=== PATIENT | female | born 1955 | race Caucasian/White ===

== ENCOUNTER 2025-01-14 10:06 | Outpatient (REF) | payer OTHER, SELFPAY ==
--- OUTSIDE RECORDS SUMMARY | 2025-01-15 10:09 | XMS_ITS | Clinical Summary ---
Author Organization [facility] Address [address] [facility] [place], [place] [address] Phone Care Team Providers Care Osteopathic Physician Name Role Phone Veronique Hamilton MD Primary Care Pr ovider Allergies No known active allergies Medications Bacillus coagulans-inuli n 1 billion-250 cell-mg capsule Take 1 Capsule by mouth daily. 07/24/2023 Active OMEGA-3 FATTY ACIDS-FISH OIL ORAL Take by mouth. Active calcium carbonate-vit D3-min 600 mg-10 mcg (400 unit) tablet Take 1 Tablet by mouth 2 times daily. 07/24/2023 Active cholecalciferol (VITAMIN D-3) 50 mcg (2,000 unit) capsule Take 1 Capsule by mouth daily. 04/23/2023 Active fluticasone propionate (FLONASE) 50 mcg/actuation nasal spray 2 Sprays by Each Nare route 2 times daily. 07/09/2023 Active ibuprofen (ADVIL,MOTRIN) 800 mg tablet TAKE 1 TABLET BY MOUTH EVERY 8 HOURS NEEDED FOR PAIN 10/13/2023 Active magnesium aspart,citrate, oxide (Triple Magnesium Complex) 400 mg magnesium capsule Take 1 Tablet by mouth daily. Active triamcinolone (KENALOG) 0.025 % cream APPLY THIN LAYER TO EAR RASH TWICE DAILY FOR 5-7 DAYS 08/27/2023 Active Active Problems Problem Noted Date Diagnosed Date Anxiety and depression 09/23/2024 Hyperlipidemia 09/23/2024 Overview (09/23/2024): Last Assessment & Plan: I reviewed that even minor coronary disease technically does put her at risk for heart attack and stroke. We found through many studies that it is the small, streaky plaques that cause acute plaque rupture and heart attack. That said, her overall burden on CT angiography is low. However, I think she would still benefit from treatment with statin long-term. She would prefer not to start statins which I think is reasonable. For the same reason, she will remain on baby aspirin. The risk- benefit for this treatment is less robust in the setting of primary prevention. She would prefer to remain on it which I think is also reasonable. Regardless, I recommended a Mediterranean diet rich in healthy fats, fruits and vegetables, whole grains. I also strongly recommended that she stop smoking of all kinds including marijuana. She seems very precontemplative. Atypical chest pain 02/04/2024 Overview (09/23/2024): Last Assessment & Plan: Noncardiac, reassuring coronary CT angiography. 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/04/2024 Overview (09/23/2024): - Positive stress test in [facility] 2022 - CT angiography and follow-up on 01/25/2024 showed normal left main, mild calcified plaque in the proximal to mid LAD at less than 25%, no plaque seen into subsequent diagonal branches of the LAD or the remaining LAD, a few small calcified plaques without hemodynamically significant stenosis seen in the circumflex territory, normal RCA without significant plaquing Last Assessment & Plan: I did review the importance of potential primary prevention strategies even in light of subclinical CAD that is mild and nonobstructive-including potential and use to prevent progression of coronary disease, continuation of baby aspirin, and observing a healthy Mediterranean diet and quitting smoking of all kinds. Please see discussion above under hyperlipidemia section. Hypertension 02/04/2024 Overview (09/23/2024): Last Assessment & Plan: Patient has had multiple visits during which her blood pressure is technically elevated. However, I suspect it is very difficult to even discuss hypertension management with her as she is very against taking medications. If the patient agrees, could consider antihypertensive treatment. Recurrent bacterial cystitis 08/26/2023 Overview (09/23/2024): 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, right Immunizations Name Administration Dates Next Due Aiming SARS-CoV-2 COVID-19, mRNA, LNP-S, preservative free 11/09/2021,02/14/2021,01/23/2021 Pneumococcal conjugate 20 va lent (Prevnar 20, PCV 20) 2mo and older 07/09/2023 Td Tetanus diptheria (Tdvax) 7yo and older 05/02 Tdap Tetanus diptheria acell ular pertussis (Boostrix; Adacel) 7yo and older 08/21/2016 Surgical History Surgery Date Site/Laterality Comments SECTION PROCEDURE: HISTORICAL DELIVERY VAGINOSCOPY PROCEDURE: VA COLPOSCOPY CERVIX VAG LOOP ELTRD BX CERVIX Medical History Medical History Date Comments Lyme disease DX:Lyme disease Anxiety DX:Anxiety Onychomycosis 02/11/2017 DX:Onychomycosis Fibromyalgia 02/11/2017 DX:Fibromyalgia Family History Medical History Relation Name Comments Arthritis Maternal Grandmother Stroke Maternal Grandmother Other: TIA Mother Other: alive and well Mother Breast cancer Mother's side cousin on moms s breana 3rd Other: alive and well Sister 3 sist ers and brother Colon cancer Neg Hx Lung cancer Neg Hx Relation Name Status Comments Father Maternal Grandfather Maternal Grandmother Mother Alive Mother's side cousin on moms side 3rd Alive Paternal Grandfather Paternal Grandmother Sister Social History Tobacco Use Types Packs/Day Years Used Date Smoking Tobacco: Former Cigarettes Q uit: 10/06/1989 Smokeless Tobacco: Never Alcohol Use Standard Drinks/Week Comments No 0 (1 standard drink = 0.6 oz pur e alcohol) Comments Unknown Sex and Gender Information Value Date Recorded Sex Assigned at Not on file Legal Sex Female 1:55 PM EST Gender Identity Not on file Sexual Orientation Not on file Obstetrics History Last Filed Vital Signs Vital Sign Reading Time Taken Comments Blood Pressure 142/76 02/04/2024 10:42 AM EDT Si tting L Arm Pulse 62 02/04/2024 10:42 AM EDT Temperature - - Respiratory Rate - - Oxygen Saturation - - Inhaled Oxygen Concentration - - Weight 77.6 kg (171 lb) 02/04/2024 10:42 AM EDT Height 154.9 cm (5' 1 ) 02/04/2024 10:42 AM EDT Body Mass Index 32.31 02/04/2024 10:42 AM EDT Plan of Treatment Health Maintenance Due Date Last Done Comments Breast Cancer Screening 1955 Zoster Vaccines (1 of 2) 2006 Colorectal Cancer Screening: Colonoscopy 09/14/2022 Depression Screening 09/14/2022 Falls Risk Assessment 09/14/2022 Medicare Annual Wellness Visit 09/14/2022 Osteoporosis Screening (Bone Density Screening) 09/14/2022 Social Influencers of Health Screening 09/14/2022 Hypertension/CHF/CAD Annual BMP Blood Test 04/30/2024 04/16/2023 COVID-19 Vaccine (4 - 2023-2 5 season) 2024 11/09/2021, 02/14/2021, 01/23/2021 Influenza Vaccine (Season Ended) 2025 DTaP,Tdap,and Td Vaccines (4 - Td or Tdap) 01/26/2027 01/26/2017, 08/21/2016, 05/02/2013 Cholesterol Screening (Lipid Panel) 04/16/2028 04/16/2023 RSV Immunization Adult Patients (1 - 1-dose 75+ series) 2031 Hepatitis C Screening Completed 08/04/2018 Pneumococcal Vaccine: 50+ Years Completed 07/09/2023 HIB Vaccines Aged Out No longer eligi ble based on patient's age to complete this topic HPV Vaccines Aged Out No longer eligi ble based on patient's age to complete this topic Hepatitis A Vaccines Aged Out No long er eligible based on patient's age to complete this topic Hepatitis B Vaccines Aged Out No long er eligible based on patient's age to complete this topic IPV Vaccines Aged Out No longer eligi ble based on patient's age to complete this topic MMR Vaccines Aged Out No longer eligi ble based on patient's age to complete this topic Meningococcal ACWY Vaccine Aged Out N o longer eligible based on patient's age to complete this topic Meningococcal B Vaccine Aged Out No l onger eligible based on patient's age to complete this topic RSV Immunization Patients Under 20 months Aged Out No longer eligible b ased on patient's age to complete this topic Varicella Vaccines Aged Out No longer eligible based on patient's age to complete this topic Procedures Procedure Name Priority Date/Time Associated Diagnosis Comments ANNUAL BMP BLOOD TEST Routine 04/16/2023 LIPID PANEL Routine 04/16/2023 HEPATITIS C SCREENING Routine 08/04/2018 from Last 3 Months or Most Recently Relevant to Health Maintenance Results * Annual BMP Blood Test (04/16/2023) Pathologist [facility] Annual BMP Blood Test Abstracted Historical Provider HEALTH MAINTENANCE Final Result * (ABNORMAL) Lipid panel (04/16/2023) [facility] LDL/HDL Ratio 4 0 - 4 Triglycerides 87 0 - 150 mg/dL Cholesterol 183 0 - 200 mg/dL HDL 49 >=40 mg/dL LDL Cholesterol 117(A) 0 - 100 mg/dL Blood Venous blood specimen / Unknown Historical Provider LAB BLOOD ORDERABLES Olga l Result * Hepatitis C Screening (08/04/2018) Pathologist [facility] Hepatitis C Screening Abstracted Historical Provider HEALTH MAINTENANCE Final Result from Last 3 Months or Most Recently Relevant to Health Maintenance Insurance [facility] [employer] Member Subscriber Plan / Payer (Ef fective 2024-Present) Name:Mallory Harris Relation to Subscriber:Self Name:Mallory Harris Payer ID:[id number] Group ID:Not on file Type:Not on file Address: [place] [address] [place] [id number] Care Teams Osteopathic Physician Relationship Specialty Start Date End Date Veronique Hamilton MD PCP - General 10/21/22
--- OUTSIDE RECORDS SUMMARY | 2025-01-15 10:09 | XMS_ITS | Clinical Summary ---
Author Organization [facility] Address [address] [place] [address] Care Team Providers Care Surface Room Shop Optician Name Role Phone Veronique Hamilton MD Primary Care Pr ovider Allergies Active Allergy Reactions Criticality Noted Date Comments Tigecycline 04/15/2023 Medications ibuprofen (MOTRIN) 800 MG tablet Take 800 mg by mouth. 09/22/2020 Active HYDROXYPROPYL CELLULOSE OPHT Apply 1 drop to eye. 08/24/2020 Active acetaminophen (TYLENOL) 650 MG CR tablet Take 650 mg by mouth. 07/14/2019 Active cyclopentolate (CYCLODRYL) 1 % ophthalmic solution INSTILL 1 DROP INTO RIGHT EYE TWICE A DAY 07/14/2020 Active propylene glycol-glycerin 1-0.3 % drop Apply 2 drops to eye. 08/22/2020 Active Artificial Tears,glycerin-p eg, 1-0.3 % drop 09/21/2020 Ac tive ibuprofen (MOTRIN) 800 MG tablet 09/22/2020 Active lidocaine (LIDODERM) 5 % Place 1 patch on the skin. 03/17/2020 Active lidocaine (LIDODERM) 5 % 09/21/2020 Acti ve peg 400-hypromellose -glycerin 1-0.2-0.2 % drop Apply 2 drops to eye. 09/13/2019 Active Artificial Tears, polyvin alc, 1.4 % ophthalmic solution APPLY 2 DROPS TO THE EYE(S) 4 TIMES DAILY. 07/10/2020 Active cholecalciferol, vitamin D3, 50 mcg (2,000 unit) Take 1 capsule by mouth 04/23/2023 Active cholecalciferol, vitamin D3, 50 mcg (2,000 unit) TAKE 1 CAPSULE BY MOUTH EVERY DAY 04/23/2023 Active lactobacillus combination no.4 (Probiotic) 3 billion cell cap Take 1 capsule by mouth 02/25/2023 Active loratadine (CLARITIN) 10 mg tablet TAKE 1 TABLET BY MOUTH EVERY DAY 06/05/2023 Active magnesium oxide,aspartate, citr (Triple Magnesium Complex) 400 mg magnesium cap Take 1 tablet by mouth Active triamcinolone (KENALOG) 0.025 % cream Apply thin layer to ear rash twice daily for 5-7 days 06/05/2023 Active triamcinolone (KENALOG) 0.025 % cream APPLY THIN LAYER TO EAR RASH TWICE DAILY FOR 5-7 DAYS 06/05/2023 Active Social History Tobacco Use Types Packs/Day Years Used Date Smoking Tobacco: Never Smokeless Tobacco: Never PHQ-2 Answer Date Recorded PHQ-2 Score Patient declined 07/07/2023 Comments Unknown Sex and Gender Information Value Date Recorded Sex Assigned at Not on file Legal Sex Female 10:59 AM EST Gender Identity Not on file Sexual Orientation Not on file Last Filed Vital Signs Vital Sign Reading Time Taken Comments Blood Pressure 148/74 07/07/2023 11:29 AM EDT Pulse 77 07/07/2023 11:00 AM EDT Temperature 36.6 ??C (97.8 ??F) 07/07/2023 11:00 AM E DT Respiratory Rate 18 07/07/2023 11:00 AM EDT Oxygen Saturation 98% 07/07/2023 11:00 AM EDT Inhaled Oxygen Concentration - - Weight 78.9 kg (174 lb) 10/06/2020 10:32 AM EST Height - - Body Mass Index - - Plan of Treatment Health Maintenance Due Date Last Done Comments Colorectal Cancer: COLONOSCO PY Screening every 10 yrs (or Modifier) 1955 Depression: Screening Annual ly using PHQ-2/9 in Adults 18 yrs or above (or HM Modifier)([facility]) 1974 Hepatitis C Virus Infection in Adolescents and Adults: Screening (or Modifier) ([facility]) 1974 [facility] Screening Reminder: Candis smith for all adults ([facility]) 1974 Tobacco Smoking Cessation: i n Adults excluding Women: Behavioral and Pharmacotherapy Interventions ([facility]) 1974 Pneumococcal Vaccination Scr eening: Patients 50+ yrs of age ([facility]) (1 of 2 - PCV) 1975 Colorectal Cancer Screening 45 -75 Yrs (or HM Modifier) 2001 Colorectal Cancer: FLEXIBLE SIGMOIDOSCOPY Screening every 5 yrs 2001 Colorectal Cancer: Fecal Immunochemical Test (FIT) Annually [facility] 2001 Colorectal Cancer: High-sens itivity gFOBT Screening Annually [facility] 2001 Colorectal Cancer: Stool Col oguard Screening every 3 yrs 2001 Colorectal Cancer:CT Colonog homar Screening every 5 yrs 2001 Breast Cancer: Screening Candis ually age 50-74 yrs (or HM Modifier)([facility]) 2006 Zoster/Shingles Vaccine Seri es Screening: Adults aged 18+ yrs (or HM Modifiers)([facility]) (1 of 2) 2006 Osteoporosis Screening to Pr event Fractures: Women aged 65 years+ ([facility]) 2021 Flu Vaccination: Ages 65+: Y early High Dose Recommended (or Modifier)([facility]) 05/06/2024 COVID-19 Vaccine Screening: Initial Series and Booster Status ([facility]) ( season) 2024 11/09/2021, 02/14/2021, 01/23/2021 DTaP/Tdap/Td Vaccines ([facility]) (2 - Td or Tdap) 08/21/2026 08/21/2016 Lipid Screening: Every 5 yrs for Women aged 45+ (or HM Modifier) ([facility]) 04/16/2028 04/16/2023 RSV Vaccines (1 - 1-dose 75+ series) 2031 [employer] [id number] [facility] Care Teams Surface Room Shop Optician Relationship Specialty Start Date End Date Veronique Hamilton MD [address] [place] [address] PCP - General Family Medicine 07/07/23
== END 2025-01-14 10:07 | disposition home or self-care (01) ==
LOC: HO.HOSX 10:06
PROVIDERS: Visit Provider Physician Assistant
DX: Z13.89 Encounter for screening for other disorder (principal)

== ENCOUNTER 2025-03-15 14:52 | Outpatient (AMB) | payer OTHER, SELFPAY ==
--- NOTE | 2025-03-15 15:16 | MHC.OFFVIS ---
Vital Signs 03/15/25 15:24 Height 5 ft 1 in Weight 179 lb BMI 33.8 Handedness Right Intake Visit Reasons: New Pt - Bilat knee pain LT worse Intake Note: Mallory is a 69 year old female who presents today as a new patient for a evaluation of her bilateral knee pain. Hx of 07/13/24. [facility] [place] for [facility] therapy on 11/25/24. Patient reports ongoing pain since July. She mentions that her left knee is worse than the right. She states that her pain start all over her left knee and it moves to the back of the knee. Patient notices that her pain is worse when . She finds relief with Motrin and physical therapy for her left knee. Allergies tigecycline Allergy (Verified 03/15/25 15:23) Nausea HPI HPI New Pt - Bilat knee pain LT worse: Details: Ms. Harris is a 69-year-old female who presents to the office today for evaluation of bilateral knee pain. She reports the left knee is worse than the right. On 07/13/24 the patient reports that she was walking into [place] when she tripped over the rug. She caught herself with the left leg and did not fall to the ground. Ever since then she has had excruciating left knee pain. She has been attending physical therapy with no relief. [facility] Surgical History (Updated 07/30/22 @ 16:22 by MIKE Frank) Hx of section H/O LEEP Family History (Updated 07/31/22 @ 09:04 by MIKE Frank) Maternal Grandmother Arthritis Stroke Mother TIA (transient ischemic attack) Other Family history of breast cancer Social History (Updated 03/15/25 @ 15:24 by Gilbert Pittman) Alcohol intake: never Patient Tobacco Use Status: Never used Tobacco Current occupational status: retired Current occupation: right hand dominant Review of Systems Const All systems reviewed & are unremarkable except as noted in HPI and below Physical Exam Vital Signs: BMI result Body Mass Index 33.8 Const General: cooperative, healthy appearing and no acute distress Resp Effort & Inspection: normal respiratory effort and able to speak in complete sentences Extrem Other: Right/Left knee: No ecchymosis erythema or joint effusion bilaterally. Tenderness to palpation along the medial and lateral joint lines. Full knee extension and flexion. Crepitus felt with range of motion. NVI. Assessment & Plan Assessment & Plan (1) Osteoarthritis of knees, bilateral: Code(s): M17.0 - Bilateral primary osteoarthritis of knee Category: Medical Plan Right/Left knee: Normal to inspection. No ecchymosis, erythema, or joint effusion. No tenderness to palpation along the medial or lateral joint lines. Full knee extension and flexion. Negative Matteo's. Negative anterior drawer. NVI. While in the office today, I reviewed the x-ray imaging with the patient and explained what osteoarthritis is and showed her on the x-rays that we obtained in the office today. I discussed multiple treatment options with this patient including cortisone injection, gel injection, referral to pain management for consideration of geniculate nerve blocks and lastly the possibility of total knee arthroplasty. The patient refused all treatment plans at this time. She stated that she was returning back to physical therapy and would like to give that some time. She was inquiring about knee sleeves however our office does not carry these. Upon leaving the office the patient told our medical record transcriber that she would like to follow up with Dr. Calderón for further discussion of total knee arthroplasty. Therefore, she will follow up with Dr. Calderón for further consideration, sooner if needed. X-rays of bilateral knees were obtained in the office today and reviewed by me, Ct Augustine PA-C, and are significant for severe osteoarthritis in bilateral knees. Orders: Orders XR Knee Marquise 3V 03/15/25 M25.561 - Pain in right knee, M25.562 - Pain in left knee Coding Level of Care Code New Pt Level 4 (98771) Diagnoses Osteoarthritis of knees, bilateral M17.0
[2025-03-15 15:24] VITALS: BMI 33.8
--- OUTSIDE RECORDS SUMMARY | 2025-03-15 17:57 | XMS_ITS | Clinical Summary ---
Author Organization [facility] Address [address] [place] [address] Care Team Providers Care Machine Packer Name Role Phone Veronique Hamilton MD Primary [...] Adults 18 yrs or above (or HM Modifier)([facility]) 1974 Hepatitis C Virus Infection in Adolescents and Adults: Screening (or Modifier) ([facility]) 1974 [facility] Screening Reminder: Candis smith for all adults ([facility]) 1974 Tobacco Smoking Cessation: i n Adults excluding Women: Behavioral and Pharmacotherapy Interventions ([facility]) 1974 Pneumococcal Vaccination Scr eening: Patients 50+ yrs of age ([facility]) (1 of 2 - PCV) 1975 Colorectal Cancer Screening 45 -75 Yrs (or HM Modifier) 2001 Colorectal Cancer: FLEXIBLE SIGMOIDOSCOPY Screening every 5 yrs 2001 Colorectal Cancer: Fecal Immunochemical Test (FIT) Annually [facility] 2001 Colorectal Cancer: High-sens itivity gFOBT Screening Annually [facility] 2001 Colorectal Cancer: Stool Col oguard Screening every 3 yrs 2001 Colorectal Cancer:CT Colonog homar Screening every 5 yrs 2001 Breast Cancer: Screening Candis ually age 50-74 yrs (or HM Modifier)([facility]) 2006 Zoster/Shingles Vaccine Seri es Screening: Adults aged 18+ yrs (or HM Modifiers)([facility]) (1 of 2) 2006 Osteoporosis Screening to Pr event Fractures: Women aged 65 years+ ([facility]) 2021 COVID-19 Vaccine Screening: Initial Series and Booster Status ([facility]) ( - 2023- season) 2024 11/09/2021, 02/14/2021, 01/23/2021 Flu Vaccination: Ages 65+: Y early High Dose Recommended (or Modifier)([facility]) 05/06/2025 DTaP/Tdap/Td Vaccines ([facility]) (2 - Td or Tdap) 08/21/2026 08/21/2016 RSV Vaccines (1 - 1-dose 75+ series) 2031 [employer] Devices Not on file Insurance [facility] Care Teams Machine Packer Relationship Specialty Start Date End Date Veronique Hamilton MD [address] [place] [id number] PCP - General Family Medicine 07/07/23
== END 2025-03-15 15:51 | disposition home or self-care (01) ==
LOC: HO.HOS 14:52
PROVIDERS: PCP Internal Medicine; Visit Provider Physician Assistant
DX: M17.0 Bilateral primary osteoarthritis of knee (principal)
CPT/HCPCS: 99204

== ENCOUNTER 2025-03-15 15:00 | Outpatient (REF) | payer OTHER, SELFPAY ==
--- NOTE | ~2025-03-15 | XR_ITS ---
Exam: Three-view bilateral knees TECHNIQUE:: Standing AP, lateral and sunrise view bilateral knees INDICATION: Knee pain Prior: None currently available Findings: Right knee: There is moderate severe narrowing of the lateral joint space and minimal narrowing of the medial joint space. There is mild narrowing of the lateral patellofemoral joint space. There are tricompartmental marginal osteophytes. There are also osteophytes projecting into the intercondylar notch and from the tibial spines. There is subchondral sclerosis in the medial tibial plateau. There is stippled calcification medial to the medial joint line. There is a joint effusion. Left knee: There is severe narrowing of the lateral joint space and minimal narrowing of the medial joint space. There is minimal narrowing of the lateral patellofemoral joint space. There are tricompartmental marginal osteophytes most pronounced along the medial joint line and patellofemoral joint. There are also osteophytes involving the intercondylar spines and minimal extending into the intercondylar notch. Small joint effusion is evident. XR/XR Knee Marquise 3V IMPRESSION: Right knee: Moderate to severe osteoarthritis with a small reactive joint effusion. Left knee: Moderate to severe osteoarthritis with a small reactive joint effusion. Electronically signed by: Calvin Olivares MD 03/16/2025 01:24 PM EDT
== END 2025-03-15 15:01 | disposition home or self-care (01) ==
LOC: HO.HOSX 15:00
PROVIDERS: Visit Provider Physician Assistant
DX: M17.0 Bilateral primary osteoarthritis of knee (principal)
CPT/HCPCS: 73562

== ENCOUNTER → 2025-03-15 15:01 | Outpatient (BNV) | payer OTHER, SELFPAY | PROVIDERS: Visit Provider Radiology Diagnostic Radiology | DX: M17.0 Bilateral primary osteoarthritis of knee (principal) | CPT/HCPCS: 73562 ==

== ENCOUNTER 2025-05-16 13:40 | Outpatient (AMB) | payer OTHER, SELFPAY ==
--- NOTE | 2025-05-16 13:42 | MHC.OFFVIS ---
Vital Signs 05/16/25 13:46 Height 5 ft 1.5 in Weight 165 lb BMI 30.7 Handedness Right Intake Visit Reasons: OV - Discuss Left TKA Intake Note: Mallory is a 69 year old female who presents today for a follow up of her Left Knee OA. Patient was last seen with Ct who discussed multiple treatment options such as cortisone, gel, pain management referral for geniculate trial and possible TKA. Patient declined conservative measures and presents today to discuss Left TKA. Has tried injections over 20 years ago. She almost fell in 07/13/24 and twisted her left leg/knee and was treated with PT however she thinks she has a fusion in the left knee. She says she was going to start PT again however her pain has increased and now she has concern for fluid build up in the knee. Allergies tigecycline Allergy (Verified 05/16/25 13:47) Nausea HPI HPI OV - Discuss Left TKA: Details: Mallory is a 69 year old female who presents today for a follow up of her Left Knee OA. Patient was last seen with Ct who discussed multiple treatment options such as cortisone, gel, pain management referral for geniculate trial and possible TKA. Patient declined conservative measures and presents today to discuss Left TKA. Has tried injections over 20 years ago. She almost fell in 07/13/24 and twisted her left leg/knee and was treated with PT however she thinks she has a fusion in the left knee. She says she was going to start PT again however her pain has increased and now she has concern for fluid build up in the knee. She has not had injection in over 10 years because she is scared of injections. She has been doing physical therapy. She has not seen pain management. She does describe difficulty with her mood with psychiatric comorbidities these and a history of suicidal ideation. She denies that she has suicidal ideation now. She is opposed to surgery as well but she does not know what to do. She feels like the pain is preventing her from living her life comfortably. [facility] Surgical History (Updated 07/30/22 @ 16:22 by MIKE Frank) Hx of section H/O LEEP Family History (Updated 07/31/22 @ 09:04 by MIKE Frank) Maternal Grandmother Arthritis Stroke Mother TIA (transient ischemic attack) Other Family history of breast cancer Social History (Updated 03/15/25 @ 15:24 by Gilbert Pittman) Alcohol intake: never Patient Tobacco Use Status: Never used Tobacco Current occupational status: retired Current occupation: right hand dominant Physical Exam Vital Signs: BMI result Body Mass Index 30.7 Extrem Other: Tenderness to palpation lateral and medial compartment of the left knee. Mild effusion. 5-125 degrees of motion. 1+ valgus instability. Results Reviewed Results Reviewed: I personally reviewed relevant radiographs. Severe bilateral knee OA left greater than right Assessment & Plan Assessment & Plan (1) Osteoarthritis of knees, bilateral: Code(s): M17.0 - Bilateral primary osteoarthritis of knee Category: Medical Plan: This is a 69-year-old woman with severe bilateral knee OA. She takes NSAIDs and has had injections in the remote past. She does not want injections. She states that injections have caused her harm in the past. She is doing physical therapy and we will continue to do this on her own. She is not interested in surgery at this time. In addition I feel like she has described a psychiatric situation that does not sound too conducive to surgery. She states she is dealing with lots of anxiety and needs to resolve this prior to any thought of surgery. We did discuss a referral to pain management to help her manage her pain which she agreed to. A referral was made. She may follow up to see me as needed. Orders: Referrals Pain Management Referral M17.0 - Bilateral primary osteoarthritis of knee Coding Level of Care Code Est Pt Level 3 (16617) Diagnoses Osteoarthritis of knees, bilateral M17.0
[2025-05-16 13:46] VITALS: BMI 30.7
== END 2025-05-16 14:15 | disposition home or self-care (01) ==
PROVIDERS: Visit Provider Orthopaedic Surgery
DX: M17.0 Bilateral primary osteoarthritis of knee (principal)
CPT/HCPCS: 99213

== ENCOUNTER → 2025-05-16 13:40 | Outpatient (BNVA) | payer OTHER, SELFPAY | PROVIDERS: Visit Provider Orthopaedic Surgery | DX: M17.0 Bilateral primary osteoarthritis of knee (principal); F41.9 Anxiety disorder, unspecified | CPT/HCPCS: 99212 ==